=== PATIENT | female | born 1960 | race Caucasian/White ===

== ENCOUNTER 2017-07-23 16:20 | Observation (INO) | payer BC ==
[~2017-07-23] VITALS: Ht 162.6 cm; Wt 66.3 kg
[2017-07-23] MEDS ORDERED: ASPI81CH PO (16:32)
[2017-07-23] MEDS ORDERED: Lomotil Tablet1 EACH PO (16:33)
[2017-07-23] MEDS ORDERED: METO25ER PO (16:33)
[2017-07-23] MEDS ORDERED: CHOL10002 PO (16:33)
[2017-07-23] MEDS ORDERED: FISH OIL 1,2001 EAC1 PO (16:33)
[2017-07-23] MEDS ORDERED: RANI150 PO (20:06)
[2017-07-24 04:37] LABS: CHOL/HDL RATIO 4.3; Cholesterol 195 mg/dL (50-200); HDL Cholesterol 45 mg/dL (>39); LDL/HDL RATIO 2.6; Low Density Lipoprotein Chol 115 mg/dL (0-110); Triglycerides 174 mg/dL (30-160); Troponin I <0.015 ng/mL (0.000-0.040); Very Low Density Lipoprot Chol 34 mg/dL (6-32)
[2017-07-24] MEDS ORDERED: ASPI81CH PO (12:51)
[2017-07-24] MEDS ORDERED: OMEG1CAP30 PO (12:52)
[2017-07-24] MEDS ORDERED: CHOL10002 PO (12:52)
[2017-07-24] MEDS ORDERED: ALUM-MAG HYDRO360 ML PO (12:54)
[2017-07-24] MEDS ORDERED: PRAV20 PO (12:55)
[2017-07-24] MEDS ORDERED: LISI5 PO (12:55)
== END 2017-07-24 14:08 | disposition home or self-care (01) ==
LOC: ER 16:20 → PCU 16:21
PROVIDERS: Internal Medicine
DX: R07.9 Chest pain, unspecified (principal); I10 Essential (primary) hypertension; R00.1 Bradycardia, unspecified; K21.9 Gastro-esophageal reflux disease without esophagitis; M19.90 Unspecified osteoarthritis, unspecified site; K74.60 Unspecified cirrhosis of liver; K76.0 Fatty (change of) liver, not elsewhere classified; Z87.891 Personal history of nicotine dependence; Z79.82 Long term (current) use of aspirin; Z79.899 Other long term (current) drug therapy; Z88.5 Allergy status to narcotic agent; Z90.49 Acquired absence of other specified parts of digestive tract; Z98.890 Other specified postprocedural states; Z87.442 Personal history of urinary calculi; Z79.01 Long term (current) use of anticoagulants; Z85.828 Personal history of other malignant neoplasm of skin
CPT/HCPCS: 36415; 80061; 83036; 84484; 93005; 93010; 93017; 93350; 96372; 96374; 96376; 99285; G0378; J1650; J3490